=== PATIENT | female | born 1955 | race Caucasian/White ===

== ENCOUNTER 2017-01-06 18:25 | Emergency (ER) | payer OTHER ==
--- NOTE | ~2017-01-06 | CT71 ---
[facility] A Service of [facility] RADIOLOGY TEXT RESULTS PATIENT: ELISE COLUNGA LOCATION: [facility] : 53 UNIT #: [id number] AGE: [address]: Neeraj Humphrey MD SEX: F ORDER DR: [id number] [facility] [address] [place], [place] [address] [id number] E MR#: [id number] Acc #: [id number] NAME: ELISE COLUNGA. : 1955 SEX: F STUDY DATE/TIME: 01/06/2017 21:35 UNIT: GISELL ROOM: STUDY DESCRIPTION: CT Head Wo Contrast Attending Physician: Neeraj Humphrey M.D. Ordering Physician: Michelle Hanley M.D. Primary Care Physician: Marcos Fierro.PHildaRKaterina MEDICAL IMAGING REPORT This report is preliminary unless electronic signature is present EXAM CT brain without contrast HISTORY Headache today. Lethargy. FINDINGS This CT exam was performed with one or more of the following radiation dose reduction techniques: Automatic exposure control, adjustment of mA and/or kV according to patient size, and iterative reconstruction. CT brain without contrast demonstrates no intracranial hemorrhage, mass or edema. No midline shift or ventricular dilatation or extraaxial fluid collection. Mild chronic ischemic changes in the deep white matter bilaterally. Extensive mucosal thickening in the partly visualized left maxillary sinus with associated thickening of the anterior and posterior left maxillary sinus greco. 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 IMPRESSION 1. No acute intracranial findings. 2. Chronic left maxillary sinusitis. Dictated by... Robin Combs M.D. THIS IS AN ELECTRONICALLY VERIFIED REPORT Robin Combs M.D. at 01/07/2017 2:03 PM DFL/psc TD: 01/06/2017 23:41 JOB #: [id number] [facility] A Service of [facility] RADIOLOGY TEXT RESULTS PATIENT: ELISE COLUNGA LOCATION: [facility] : 53 UNIT #: [id number] AGE: [address]: Neeraj Humphrey MD SEX: F ORDER DR: MEDICAL IMAGING REPORT Page 1 of 1 COPY
--- NOTE | ~2017-01-06 | CT4 ---
[facility] A Service of [facility] RADIOLOGY TEXT RESULTS PATIENT: ELISE COLUNGA LOCATION: [facility] : 53 UNIT #: [id number] AGE: [address]: Neeraj Humphrey MD SEX: F ORDER DR: [id number] [facility] [address] [place], [place] [address] [id number] E MR#: [id number] Acc #: [id number] NAME: ELISE COLUNGA. : 1955 SEX: F STUDY DATE/TIME: 01/06/2017 21:43 UNIT: [facility] ROOM: STUDY DESCRIPTION: CT Abd and Pelv Wo Cont Attending Physician: Neeraj Humphrey M.D. Ordering Physician: Michelle Hanley M.D. Primary Care Physician: Urszula FierroPHildaRKaterina MEDICAL IMAGING REPORT This report is preliminary unless electronic signature is present EXAM Abdomen and pelvis CT, no contrast; 01/06/2017. INDICATIONS 61-year-old female with hypoglycemia at dialysis. Abdominal pain, right and left lower quadrant pain. Lethargy, headache symptoms began today. TECHNIQUE Noncontrast abdomen and pelvis CT was performed. This CT exam was performed with one or more of the following radiation dose reduction techniques: automatic exposure control, adjustment of mA and/or kV according to patient size, and iterative reconstruction. COMPARISON Comparison study from 03/21/2012 on the archive cannot be retrieved due to continuing computer malfunction. FINDINGS CT ABDOMEN: Exam degraded by noncontrast technique and motion. There is atelectasis within the lingula. No effusion. There is mild cardiomegaly. There is a small to early moderate-sized pericardial effusion measuring up to 2 cm at the cardiac apex. Mitral valve calcifications present. Aorta demonstrates atherosclerotic disease. Spleen and adrenal glands are unremarkable. The pancreas is unremarkable, and there is uncomplicated cholelithiasis. The liver is unremarkable. Kidneys demonstrate no hydronephrosis or radiopaque stone. No adenopathy. CT PELVIS: Uterus surgically absent. Bladder unremarkable. No free fluid or drainable fluid collection in the pelvis. Intermittent diverticulosis. No bowel obstruction. Appendix unremarkable. Inguinal canals normal. [facility]. [facility] A Service of [facility] RADIOLOGY TEXT RESULTS PATIENT: ELISE COLUNGA LOCATION: [facility] : 53 UNIT #: [id number] AGE: [address]: Neeraj Humphrey MD SEX: F ORDER DR: There is minimal to mild generalized anasarca. No suspicious bone lesion. There are degenerative changes in the thoracolumbar spine. IMPRESSION 1. No clearly acute process in the abdomen or pelvis. No bowel obstruction drainable fluid collection or focal area of inflammatory change. Appendix within normal limits. 2. Uncomplicated cholelithiasis. 3. Diverticulosis. Dictated by... Leonid Munoz M.D. THIS IS AN ELECTRONICALLY VERIFIED REPORT Leonid Munoz M.D. at 01/07/2017 2:37 PM Bryson TD: 01/06/2017 23:46 JOB #: [id number] MEDICAL IMAGING REPORT Page 1 of 1 COPY
--- NOTE | ~2017-01-06 | EKG ---
PATIENT: ELISE COLUNGA UNIT #: [id number] Ventricular Rate: 65 BPM Atrial Rate: 65 BPM P-R Interval: 180 ms QRS Duration: 90 ms Q-T Interval: 432 ms QTC Calculation(Bezet): 449 ms P [place]: 51 degrees Calculated T [place]: 14 degrees Diagnosis Line: Normal sinus rhythm Diagnosis Line: Normal ECG Diagnosis Line: When compared with ECG of 21-FEB-2015 17:32, Diagnosis Line: Nonspecific T wave abnormality now evident in Diagnosis Line: Inferior leads Diagnosis Line: Confirmed by EM MUNGUIA MD ([id number]) on Diagnosis Line: 01/08/2017 7:56:55 AM INTERPRETING MD: EZRA ROQUE
--- NOTE | ~2017-01-06 | CR72 ---
[facility] A Service of [facility] RADIOLOGY TEXT RESULTS PATIENT: ELISE COLUNGA LOCATION: [facility] : 53 UNIT #: [id number] AGE: [address]: Neeraj Humphrey MD SEX: F ORDER DR: [id number] [facility] [address] [place], [place] [address] [id number] E MR#: [id number] Acc #: [id number] NAME: ELISE COLUNGA. : 1955 SEX: F STUDY DATE/TIME: 01/06/2017 19:58 UNIT: [facility] ROOM: STUDY DESCRIPTION: CR Chest Single View Portable Attending Physician: Neeraj Humphrey M.D. Ordering Physician: Michelle Hanley M.D. Primary Care Physician: Urszula FierroPHildaRKaterina MEDICAL IMAGING REPORT This report is preliminary unless electronic signature is present EXAM Portable chest. HISTORY Hypoglycemia and shortness of air for 2 weeks. FINDINGS Moderate cardiac enlargement, greater than on 02/07/2013. Pulmonary vascularity is normal. Relatively low lung volumes. Small calcified left hilar nodes. No pulmonary consolidation or effusion. Limited evaluation of left base due to underpenetration. Postop changes in the left axilla. Chronic fracture deformity proximal shaft right humerus. IMPRESSION No acute findings. Cardiomegaly. Dictated by... Robin Combs M.D. THIS IS AN ELECTRONICALLY VERIFIED REPORT Robin Combs M.D. at 01/07/2017 2:02 PM ANNA/olivia TD: 01/06/2017 23:12 JOB #: [id number] MEDICAL IMAGING REPORT Page 1 of 1 COPY
[~2017-01-06 18:25] MED LIST: ACETAMINOPHEN PO; ACID CONTROL20 MG PO; ADALAT CC PO; ADVAIR 2501 DISK W/D PO; ALBUTEROL MININEB NEB; ASPIRIN PO; ASPIRIN81 M2 PO; ATORVASTATIN CA80 MG PO; BACTRIM DS TABL1 TAB PO; CATAPRES0.1 MG PO; CLONIDINE HCL0.1 MG PO; CLONIDINE PO; COMBIVENT INH14.7 GM INH; COZAAR PO; DUONEB 2.5-0.5 M3 ML NEB; FAMOTIDINE20 M1 PO; FOSRENOL500 MG PO; FUROSEMIDE80 MG PO; GLUCOTROL PO; HUMULIN 70/30 V10 ML SUBQ; HUMULIN 70100 UNIT/1 SUBQ; HYDRALAZINE HCL50 MG PO; KEFLEX PO; LEVAQUIN750 MG PO; LIPITOR PO; LISINOPRIL PO; LOPID600 MG PO; LOPRESSOR PO; LORTAB 10-5001 EACH PO; LOSARTAN POTAS100 MG PO; METFORMIN PO; METOPROLOL TAR25 MG DOB; MONTELUKAST SOD10 MG PO; NIFEDIPINE30 MG/BOTT PO; PAROXETINE HCL20 M1 PO; PAROXETINE HCL20 MG PO; PAXIL PO; PHENERGAN25 M1 DOB; PHENERGAN25 MG PO; PRILOSEC20 M1 PO; PROAIR HFA8.5 GM IH; PROAIR HFA8.5 GM INH; PROCARDIA XL PO; REGLAN10 MG PO; SYMBICORT INH; ULTRAM PO
[2017-01-06 19:34] LABS: ARTERIAL BLD GAS O2 SATURATION 84.9 % (90.0-100.0); ARTERIAL BLOOD GAS CARBOXY HB 1.2 %sat (0.0-9.0); ARTERIAL BLOOD GAS MET HB 0.8 %sat (0.0-2.0); ARTERIAL BLOOD GAS PCO2 46.2 mmHg (35.0-45.0); ARTERIAL BLOOD GAS pH 7.462 (7.350-7.450)
[2017-01-06 19:36] LABS: ARTERIAL BLOOD GAS PO2 52.6 mmHg (80.0-100); ARTERIAL DRAW? YES
[2017-01-06 19:37] LABS: ARTERIAL BLOOD GAS ALLEN TEST NORMAL; ARTERIAL BLOOD GAS ART SITE RIGHT RADIAL; ARTERIAL BLOOD GAS DELIVERY ROOM AIR
[2017-01-06 20:29] LABS: URINE SOURCE CLEAN CATCH
[2017-01-06 20:33] LABS: BASOPHIL# 0.1 X10e3 (0-0.3); BASOPHIL% 0.6 % (0-2.5); DIFF IND NO; EOSINOPHIL# 0.3 X10e3 (0-0.7); EOSINOPHIL% 2.3 % (0.0-7.0); HEMATOCRIT 31.2 % (35.0-45.0); HEMOGLOBIN 9.8 gm/dL (12.0-16.0); LYMPHOCYTE# 0.9 X10e3 (1.0-3.5); LYMPHOCYTE% 7.9 % (17.0-45.0); MEAN CELL VOLUME 96.3 FL (83-96); MEAN CORPUSCULAR HEMOGLOBIN 30.3 PG (28-34); MEAN CORPUSCULAR HGB CONC 31.5 g/dL (30-36); MEAN PLATELET VOLUME 8.7 FL (6.5-11.5); MONOCYTE# 0.7 X10e3 (0-1.0); NEUTROPHIL# 9.7 X10e3 (1.5-7.1); NEUTROPHIL% 83.2 % (40-75); PLATELET COUNT 227 X10e3 (140-420); RED BLOOD COUNT 3.24 X10e (3.90-5.30); RED CELL DISTRIBUTION WIDTH 18.6 % (11.0-15.5); WHITE BLOOD COUNT 11.6 X10e3 (4.0-10.5)
[2017-01-06 20:34] LABS: URINE APPEARANCE CLEAR; URINE BILIRUBIN NEG (NEG); URINE BLOOD TRACE (NEG); URINE COLOR YELLOW; URINE GLUCOSE NEG (NEG); URINE KETONE NEG (NEG); URINE LEUKOCYTE ESTERASE NEG (NEG); URINE NITRATE NEG (NEG); URINE PH 7.5 (5-8); URINE PROTEIN 3+ (NEG); URINE SPECIFIC GRAVITY 1.014 (1.003-1.035)
[2017-01-06 20:37] LABS: U HYALINE CASTS AUWI 0-2 /[LPF]; URBCS1 AUWI 0-2 /[HPF] (0-2); URINE BACTERIA AUWI NEG (NEGATIVE); URINE SQUAMOUS EPITHELIAL CELL OCC /[HPF]; UWBCS1 AUWI 0-2 (0-5)
[2017-01-06 20:41] LABS: POC - CKMB 4.4 ng/mL (0.0-7.9); POC - TROPONIN <0.05 ng/mL (<=0.05)
[2017-01-06 20:43] LABS: CULTURE INDICATED? NO
[2017-01-06 20:46] LABS: INR 1.1; PARTIAL THROMBOPLASTIN TIME 28.3 SECONDS (23.5-31.3)
[2017-01-06 20:55] LABS: ALBUMIN SERUM 3.6 g/dL (3.5-5.0); ALKALINE PHOSPHATASE 121 U/L (32-92); ALT (SGPT) 27 U/L (10-40); AST (SGOT) 26 U/L (10-42); BILIRUBIN, DIRECT 0.1 mg/dL (0.0-0.2); BILIRUBIN,INDIRECT 1.1 mg/dL (0.0-0.9); BILIRUBIN,TOTAL 1.2 mg/dL (0.2-2.0); BLOOD UREA NITROGEN 19 mg/dL (9-23); BUN/CREATININE RATIO 5.93; CALCIUM SERUM 8.8 mg/dL (8.4-10.2); CARBON DIOXIDE 31 mmol/L (22-31); CHLORIDE 98 mmol/L (100-111); CREATININE SERUM 3.2 mg/dL (0.6-1.4); GLOM FILT RATE Estimated 14.8 mL/min (>60); GLUCOSE FASTING 78 mg/dL (70-110); MAGNESIUM 1.8 mg/dL (1.6-3.0); PHOSPHOROUS 3.4 mg/dL (2.5-4.6); POTASSIUM 3.5 mmol/L (3.5-5.1); PROTEIN TOTAL SERUM 6.8 g/dL (6.0-8.3); SODIUM 137 mmol/L (135-145)
[2017-01-06 20:56] LABS: ALCOHOL BLOOD <5 mg/dL (0)
[2017-01-06 21:05] LABS: AMPHETAMINE NEG (NEG); BARBITURATES NEG (NEG); BENZODIAZEPINES NEG (NEG); COCAINE NEG (NEG); MARIJUANA NEG (NEG); OPIATES NEG (NEG); TRICYCLIC ANTIDEPRESSANTS NEG (NEG); U METHADONE NEG (NEG)
[2017-03-23] MEDS ORDERED: HUMULIN 70100 UNITS/ SUBQ (12:25)
[2017-03-23] MEDS ORDERED: PATIENT'S PHARMACY (12:25)
[2017-03-23] MEDS ORDERED: SENSIPAR30 M1 PO (12:25)
[2017-03-23] MEDS ORDERED: RENAL SOFTGEL1 MG PO (12:26)
[2017-03-23] MEDS ORDERED: NIFEDIPINE ER30 MG PO (12:26)
[2017-03-23] MEDS ORDERED: FLEXERIL10 MG PO (12:26)
[2017-03-23] MEDS ORDERED: SINGULAIR PO (12:26)
[2017-03-23] MEDS ORDERED: LOPRESSOR (12:26)
[2017-03-23] MEDS ORDERED: FOSRENOL500 MG PO (12:27)
[2017-03-23] MEDS ORDERED: PAXIL PO (12:27)
[2017-03-23] MEDS ORDERED: FAMOTIDINE10 MG PO (12:27)
[2017-03-23] MEDS ORDERED: COZAAR PO (12:27)
[2017-03-23] MEDS ORDERED: LIPITOR PO (12:27)
[2017-03-23] MEDS ORDERED: ADVAIR 500-501 EACH INH (12:27)
== END 2017-01-06 22:58 | disposition home or self-care (01) ==
LOC: CED 18:25 → SED 20:00 → CED 22:58
PROVIDERS: Emergency Medicine
DX: E11.649 Type 2 diabetes mellitus with hypoglycemia without coma (principal); R41.82 Altered mental status, unspecified; E11.22 Type 2 diabetes mellitus with diabetic chronic kidney disease; I12.0 Hypertensive chronic kidney disease with stage 5 chronic kidney disease or end stage renal disease; N18.6 End stage renal disease; D63.1 Anemia in chronic kidney disease; J45.909 Unspecified asthma, uncomplicated; F32.9 Major depressive disorder, single episode, unspecified; E78.5 Hyperlipidemia, unspecified; Z90.710 Acquired absence of both cervix and uterus; Z79.4 Long term (current) use of insulin; Z79.899 Other long term (current) drug therapy; Z79.82 Long term (current) use of aspirin; Z88.5 Allergy status to narcotic agent
CPT/HCPCS: 36415; 36600; 70450; 71010; 74176; 80048; 80076; 80307; 81003; 82553; 82803; 82947; 83605; 83735; 84100; 84484; 85025; 85610; 85730; 87040; 93005; 99285; G0480